=== PATIENT | male | born 1930 | race Hispanic/Latino ===

== ENCOUNTER 2017-05-16 12:41 | Inpatient (IN) | payer MEDICARE ==
[2017-05-16 12:41] VITALS: BMI 31.4
[2017-05-16] MEDS ORDERED: Albuterol-Ipratrop 3 mg / 0.5 (3 ml) UD IH STA (15:01)
[2017-05-16] MEDS ORDERED: Albuterol-Ipratrop 3 mg / 0.5 (3 ml) UD ONE (15:10)
[2017-05-16 15:33] LABS: BASO % 0.2 % (0.0-2.0); HEMOGLOBIN 12.9 g/dL (12.0-18.0); LYMPH # 0.9 K/uL (1.0-4.3); LYMPH % 6.6 % (20.0-40.0); MEAN CELL VOLUME 95.6 fL (80.0-94.0); MEAN CORPUSCULAR HEMOGLOBIN 31.7 pg (27.0-31.0); MEAN CORPUSCULAR HGB CONC 33.1 g/dL (33.0-37.0); MEAN PLATELET VOLUME 9.5 fL (7.2-11.7); MONO # 1.6 K/uL (0.0-0.8); MONO % 11.2 % (0.0-10.0); NEUT # 11.5 K/uL (1.8-7.0); PLATELET COUNT 133 K/uL (130-400); RBC 4.08 Mil/uL (4.40-5.90); RED CELL DISTRIBUTION WIDTH 13.6 % (11.5-14.5)
[2017-05-16 15:35] LABS: WHITE BLOOD COUNT 14.1 K/uL (4.8-10.8)
[2017-05-16 15:39] LABS: SQUAMOUS EPITHIAL 1 /hpf (0-5); URINE BACTERIA OCC (<OCC); URINE BILIRUBIN NEGATIVE (NEGATIVE); URINE BLOOD 1+ (NEGATIVE); URINE CLARITY Hazy (Clear); URINE COLOR Amber (YELLOW); URINE GLUCOSE (UA) NORMAL (Normal); URINE LEUKOCYTE ESTERASE 3+ Leu/uL (Negative); URINE NITRATE POSITIVE (NEGATIVE); URINE PROTEIN 3+ mg/dL (NEGATIVE); URINE UROBILINOGEN NORMAL mg/dL (0.2-1.0)
[2017-05-16 15:42] LABS: INR 1.4; PROTHROMBIN TIME 15.6 SECONDS (9.7-12.2)
[2017-05-16 15:46] LABS: ALB/GLOB RATIO 1.1 (1.0-2.1); ALBUMIN 4.3 g/dL (3.5-5.0); ALT/SGPT 39 U/L (21-72); AST/SGOT 35 U/L (17-59); BLOOD UREA NITROGEN 29 mg/dL (9-20); CALCIUM 8.7 mg/dl (8.6-10.4); GFR AFRICAN-AMERICAN > 60; GFR NON-AFRICAN AMERICAN 52
[2017-05-16 15:56] LABS: BANDS 2 % (0-2); BURR CELLS SLIGHT; LYMPHOCYTE 5 % (20-40); MONOCYTE 9 % (0-10); NEUTROPHIL 84 % (50-75); PLATELET ESTIMATE NORMAL (NORMAL); TOTAL CELLS COUNTED 100
[2017-05-16 15:57] LABS: GIANT PLATELETS PRESENT; LARGE PLATELETS PRESENT
[2017-05-16 15:58] LABS: B-TYPE NATRIURETIC PEPTIDE 1530 pg/mL (0-900)
--- NOTE | 2017-05-16 17:30 | RAD ---
HISTORY: Cough COMPARISON: Chest x-ray performed 02/06/14 TECHNIQUE: Chest PA and lateral FINDINGS: LUNGS: No focal consolidation. Please note that chest x-ray has limited sensitivity for the detection of pulmonary masses. PLEURA: No significant pleural effusion identified. No definite pneumothorax . CARDIOVASCULAR: Heart size appears within normal limits. Atherosclerotic calcification of the aorta. OSSEOUS STRUCTURES: Osseous demineralization. Degenerative changes. VISUALIZED UPPER ABDOMEN: Marked elevation of the right hemidiaphragm. OTHER FINDINGS: None. IMPRESSION: Marked elevation of the right hemidiaphragm.
--- NOTE | 2017-05-16 18:06 | C.PDOC ---
Time Seen by Provider: 05/16/17 14:49 Chief Complaint (Nursing): Fever History Per: Patient Onset/Duration Of Symptoms: Days (few) Current Symptoms Are (Timing): Still Present Associated Symptoms: Fever (subjective), Cough, Nasal Congestion, Other ( Urinary symptoms) Severity: Moderate Additional History Per: Prior Records Past Medical History Reviewed: Historical Data, Nursing Documentation, Vital Signs Vital Signs: Last Vital Signs Temp 98.7 F 05/16/17 18:01 Pulse 92 H 05/16/17 18:01 Resp 18 05/16/17 18:01 BP 131/80 05/16/17 18:01 Pulse Ox 96 05/16/17 18:07 - Medical History PMH: Atrial Fibrillation, Benign Prostatic Hyperplasia (?), HTN Surgical History: Coronary Stent (x5) Family History: States: Unknown Family Hx - Social History Hx Tobacco Use: No Hx Alcohol Use: Yes Hx Substance Use: No - Immunization History Hx Tetanus Toxoid Vaccination: No Hx Influenza Vaccination: No Hx Pneumococcal Vaccination: No Review Of Systems Except As Marked, All Systems Reviewed And Found Negative. Constitutional: Positive for: Malaise Cardiovascular: Negative for: Chest Pain Respiratory: Positive for: Cough. Negative for: Shortness of Breath, Hemoptysis Gastrointestinal: Negative for: Vomiting, Abdominal Pain, Diarrhea Genitourinary: Positive for: Dysuria, Frequency Musculoskeletal: Negative for: Neck Pain, Back Pain Skin: Negative for: Rash Neurological: Negative for: Weakness, Numbness Physical Exam - Physical Exam Appears: Non-toxic, No Acute Distress Skin: Normal Color, Warm, Dry, No Rash Head: Atraumatic, Normacephalic Eye(s): bilateral: Normal Inspection, PERRL, EOMI Neck: Normal ROM, Supple Cardiovascular: Rhythm Regular Respiratory: No Accessory Muscle Use, Rhonchi (mild) Gastrointestinal/Abdominal: Soft, No Tenderness Back: No CVA Tenderness Extremity: Normal ROM Neurological/Psych: Oriented x3, Normal Motor, Normal Sensation ED Course And Treatment - Laboratory Results Result Diagrams: 05/16/17 15:29 05/16/17 15:29 Lab Interpretation: Abnormal Interpretation Of Abnormal: UTI. Mild leukocytosis. O2 Sat by Pulse Oximetry: 96 Pulse Ox Interpretation: Normal - Radiology CXR: Viewed By Me, Read By Radiologist CXR Interpretation: Yes: Other (Elevated right hemidiaphragm). No: Infiltrates Progress - Interventions Interventions:: Observation, Intravenous fluid - Medications Administered Inhaled nebulized: Anticholinergic, Beta-2 agonist Intravenous: Other (Abx) - Data Reviewed Data Reviewed: Lab, Diagnostic imaging, Old records - Patient Status Patient status: Partially improved - Continuity of Care Discussed patient case with:: Patient, ED Nurse, On-call PMD-pt unassigned - Patient Plan Patient Plan: Admission Disposition Discussed With : Anand Alba Comment: He accepted pt on his service. Doctor Will See Patient In The: Hospital Counseled Patient/Family Regarding: Studies Performed, Diagnosis - Disposition Disposition: HOSPITALIZED Disposition Time: 18:08 Condition: FAIR - Clinical Impression Clinical Impression: Complicated urinary tract infection
[2017-05-16] MEDS ORDERED: cefTRIAXone IV 1 gm in Dextros 50 ML IVPB STA (18:07)
[2017-05-16] MEDS ORDERED: Sodium Chloride 0.9% 500 ML IV ONE ×2 (18:07→18:14)
[2017-05-16] MEDS ORDERED: cefTRIAXone IV 1 gm in Dextros 50 ML IVPB ONE (18:14)
--- NOTE | 2017-05-16 22:53 | CP.PCM.HP ---
History of Present Illness - History of Present Illness History of Present Illness: CC: coughing, fever HPI: 86 year old white male with PMh of prostrate cancer, came in with c/o coughing, associated with fever and chills pt assumed that he had pneumonia and came in ER to get evaluated, he was found to have UTI Review of Systems - Review of Systems Systems not reviewed;Unavailable: Acuity of Condition - Constitutional Constitutional: Fatigue, Fever, Lethargy - EENT Eyes: absent: As Per HPI, Blind Spots, Blurred Vision, Change in Vision, Decreased Night Vision, Diplopia, Discharge, Dry Eye, Exophthalmos, Floaters, Irritation, Itchy Eyes, Loss of Peripheral Vision, Pain, Photophobia, Requires Corrective Lenses, Sees Flashes, Spots in Vision, Tunnel Vision, Other Visual Disturbances, Loss of Vision, Other Nose/Mouth/Throat: absent: As Per HPI, Epistaxis, Nasal Congestion, Nasal Discharge, Nasal Obstruction, Nasal Trauma, Nose Pain, Post Nasal Drip, Sinus Pain, Sinus Pressure, Bleeding Gums, Change in Voice, Dental Pain, Dry Mouth, Dysphagia, Halitosis, Hoarsness, Lip Swelling, Mouth Lesions, Mouth Pain, Odynophagia, Sore Throat, Throat Swelling, Tongue Swelling, Facial Pain, Neck Pain, Neck Mass, Other - Respiratory Respiratory: Cough - Gastrointestinal Gastrointestinal: absent: As Per HPI, Abdominal Pain, Belching, Bloating, Change in Bowel Habits, Change in Stool Character, Coffee Ground Emesis, Constipation, Cramping, Diarrhea, Dyspepsia, Dysphagia, Early Satiety, Excessive Flatus, Fecal Incontinence, Heartburn, Hematemesis, Hematochezia, Loose Stools, Melena, Nausea, Odynophagia, Temesmus, Vomiting, Other - Genitourinary Genitourinary: Urinary Frequency, Urinary Hesitance Past Patient History - Past Medical History & Family History Past Medical History?: Yes - Past Social History Smoking Status: Never Smoked - CARDIAC Hx Atrial Fibrillation: Yes Hx Hypertension: Yes - PULMONARY Hx Respiratory Disorders: No - NEUROLOGICAL Hx Neurological Disorder: No - HEENT Hx HEENT Problems: No - ENDOCRINE/METABOLIC Hx Endocrine Disorders: No - HEMATOLOGICAL/ONCOLOGICAL Hx Blood Disorders: No - INTEGUMENTARY Hx Dermatological Problems: No - MUSCULOSKELETAL/RHEUMATOLOGICAL Hx Musculoskeletal Disorders: No Hx Falls: No - GASTROINTESTINAL Hx Gastrointestinal Disorders: No - GENITOURINARY/GYNECOLOGICAL Hx Genitourinary Disorders: Yes Hx Prostate Cancer: Yes - PSYCHIATRIC Hx Substance Use: No - SURGICAL HISTORY Hx Coronary Stent: Yes (x5) - ANESTHESIA Hx Anesthesia: Yes Hx Anesthesia Reactions: No Hx Malignant Hyperthermia: No Meds Allergies/Adverse Reactions: Allergies Allergy/AdvReac Type Severity Reaction Status Date / Time No Known Allergies Allergy Verified 05/16/17 13:05 Physical Exam - Constitutional Appears: No Acute Distress - Head Exam Head Exam: ATRAUMATIC, NORMAL INSPECTION, NORMOCEPHALIC - Eye Exam Eye Exam: EOMI, Normal appearance, PERRL Pupil Exam: NORMAL ACCOMODATION, PERRL - Respiratory Exam Respiratory Exam: Clear to Auscultation Bilateral, NORMAL BREATHING PATTERN - Cardiovascular Exam Cardiovascular Exam: REGULAR RHYTHM - GI/Abdominal Exam GI & Abdominal Exam: Normal Bowel Sounds, Soft. absent: Tenderness Results - Vital Signs Recent Vital Signs: Last Vital Signs Temp 98.7 F 05/16/17 22:33 Pulse 101 H 05/16/17 22:33 Resp 18 05/16/17 22:33 BP 134/61 05/16/17 22:33 Pulse Ox 96 05/16/17 22:33 - Labs Result Diagrams: 05/16/17 15:29 05/16/17 15:29 Labs: Laboratory Results - last 24 hr 05/16/17 05/16/17 05/16/17 15:29 15:29 15:29 WBC 14.1 H D RBC 4.08 L Hgb 12.9 Hct 39.0 MCV 95.6 H MCH 31.7 H MCHC 33.1 RDW 13.6 Plt Count 133 MPV 9.5 Neut % (Auto) 82.0 H Lymph % (Auto) 6.6 L [place] % (Auto) 11.2 H Eos % (Auto) 0.0 Baso % (Auto) 0.2 Neut # (Auto) 11.5 H Lymph # (Auto) 0.9 L [place] # (Auto) 1.6 H Eos # (Auto) 0.0 Baso # (Auto) 0.0 Neutrophils % (Manual) 84 H Band Neutrophils % 2 Lymphocytes % (Manual) 5 L Monocytes % (Manual) 9 Platelet Estimate Normal Large Platelets Present Giant Platelets Present [place] Cells Slight PT 15.6 H INR 1.4 APTT 48 H Sodium 131 L Potassium 4.5 Chloride 93 L Carbon Dioxide 26 Anion Gap 17 BUN 29 H Creatinine 1.3 Est GFR ( Amer) > 60 Est GFR (Non-Af Amer) 52 Random Glucose 100 Calcium 8.7 Total Bilirubin 0.9 AST 35 ALT 39 Alkaline Phosphatase 98 Troponin I 0.0750 NT-Pro-B Natriuret Pep 1530 H Total Protein 8.3 Albumin 4.3 Globulin 4.0 H Albumin/Globulin Ratio 1.1 Urine Color Urine Clarity Urine pH Ur Specific [place] Urine Protein Urine Glucose (UA) Urine Ketones Urine Blood Urine Nitrate Urine Bilirubin Urine Urobilinogen Ur Leukocyte Esterase Urine WBC (Auto) Urine RBC (Auto) Ur Squamous Epith Cells Urine Bacteria Influenza Typ A,B (EIA) 05/16/17 05/16/17 15:29 15:31 WBC RBC Hgb Hct MCV MCH MCHC RDW Plt Count MPV Neut % (Auto) Lymph % (Auto) [place] % (Auto) Eos % (Auto) Baso % (Auto) Neut # (Auto) Lymph # (Auto) [place] # (Auto) Eos # (Auto) Baso # (Auto) Neutrophils % (Manual) Band Neutrophils % Lymphocytes % (Manual) Monocytes % (Manual) Platelet Estimate Large Platelets Giant Platelets [place] Cells PT INR APTT Sodium Potassium Chloride Carbon Dioxide Anion Gap BUN Creatinine Est GFR ( Amer) Est GFR (Non-Af Amer) Random Glucose Calcium Total Bilirubin AST ALT Alkaline Phosphatase Troponin I NT-Pro-B Natriuret Pep Total Protein Albumin Globulin Albumin/Globulin Ratio Urine Color [place] Urine Clarity Hazy Urine pH 5.0 Ur Specific [place] 1.019 Urine Protein 3+ H Urine Glucose (UA) Normal Urine Ketones Trace Urine Blood 1+ H Urine Nitrate Positive H Urine Bilirubin Negative Urine Urobilinogen Normal Ur Leukocyte Esterase 3+ H Urine WBC (Auto) 865 H Urine RBC (Auto) 6 H Ur Squamous Epith Cells 1 Urine Bacteria Occ H Influenza Typ A,B (EIA) Negative for flu a/b Assessment & Plan (1) Shortness of breath Status: Acute (2) Cough Status: Acute (3) Complicated urinary tract infection Status: Acute
[2017-05-17] MEDS: guaiFENesin 200 mg/10 ml Syrup UD PO PRN (00:48)
[2017-05-17] MEDS: Albuterol-Ipratrop 3 mg / 0.5 (3 ml) UD INH SCH ×4 (01:20→20:39)
[2017-05-17 01:32] VITALS: RESP 20
[2017-05-17] MEDS: Magnesium Oxide 400 mg Tab UD PO SCH (10:01)
[2017-05-17 11:39] LABS: BASO % 0.2 % (0.0-2.0); EOS % 0.1 % (0.0-4.0); HEMOGLOBIN 11.9 g/dL (12.0-18.0); LYMPH # 0.9 K/uL (1.0-4.3); LYMPH % 7.7 % (20.0-40.0); MEAN CELL VOLUME 95.6 fL (80.0-94.0); MEAN CORPUSCULAR HEMOGLOBIN 31.9 pg (27.0-31.0); MEAN CORPUSCULAR HGB CONC 33.4 g/dL (33.0-37.0); MEAN PLATELET VOLUME 10.3 fL (7.2-11.7); MONO # 0.8 K/uL (0.0-0.8); MONO % 6.9 % (0.0-10.0); NEUT % 85.1 % (50.0-75.0); NRBC % 0.1 % (0.0-2.0); RBC 3.73 Mil/uL (4.40-5.90); RED CELL DISTRIBUTION WIDTH 13.3 % (11.5-14.5); WHITE BLOOD COUNT 11.7 K/uL (4.8-10.8)
[2017-05-17 11:40] LABS: BLOOD UREA NITROGEN 29 mg/dL (9-20); CALCIUM 8.2 mg/dl (8.6-10.4); GFR AFRICAN-AMERICAN > 60; GFR NON-AFRICAN AMERICAN > 60
[2017-05-17 11:46] LABS: PLATELET COUNT 111 K/uL (130-400)
--- NOTE | 2017-05-17 11:54 | CARD ---
APPROVED REPORT EKG Measurement Heart [id number] <Conclusion> Atrial fibrillation Right bundle branch block Marked T wave abnormality, consider inferolateral ischemia Abnormal ECG
[2017-05-17 12:40] LABS: BANDS 2 % (0-2); LYMPHOCYTE 6 % (20-40); MONOCYTE 5 % (0-10); NEUTROPHIL 87 % (50-75); TOTAL CELLS COUNTED 100
[2017-05-17 12:42] LABS: PLATELET ESTIMATE SLIGHTLY DECREASED (NORMAL)
[2017-05-17 12:43] LABS: OVALOCYTES SLIGHT
[2017-05-17 12:45] LABS: BURR CELLS SLIGHT
--- NOTE | 2017-05-17 23:09 | CP.PCM.PN ---
Subjective - Date & Time of Evaluation Date of Evaluation: 05/17/17 Time of Evaluation: 19:55 - Subjective Subjective: Pt seen and evaluated at bedside, still febrile Objective - Vital Signs/Intake and Output Vital Signs (last 24 hours): Temp Pulse Resp BP Pulse Ox 101 F H 76 20 105/65 96 05/17/17 18:44 05/17/17 15:24 05/17/17 15:24 05/17/17 18:43 05/17/17 15:24 - Medications Medications: Current Medications Acetaminophen (Tylenol 325mg Tab) 650 mg PO Q6 PRN PRN Reason: pain/fever of 100.4 and above Last Admin: 05/17/17 18:44 Dose: 650 mg Albuterol/Ipratropium (Duoneb 3 Mg/0.5 Mg (3 Ml) Ud) 3 ml INH RQ6 [facility] Last Admin: 05/17/17 20:39 Dose: 3 ml Clopidogrel Bisulfate (Plavix) 75 mg PO DAILY [facility] Last Admin: 05/17/17 10:00 Dose: 75 mg Dabigatran (Pradaxa) 150 mg PO BID [facility] Last Admin: 05/17/17 18:44 Dose: 150 mg Enalapril Maleate (Vasotec) 2.5 mg PO DAILY [facility] Last Admin: 05/17/17 10:00 Dose: 2.5 mg Guaifenesin (Robitussin) 200 mg PO Q4H PRN PRN Reason: Cough and congestion Last Admin: 05/17/17 00:48 Dose: 200 mg Ceftriaxone Sodium 1 gm/ (Sodium Chloride) 100 mls @ 100 mls/hr IVPB DAILY [facility] Last Admin: 05/17/17 10:01 Dose: 100 mls/hr Magnesium Oxide (Mag-Ox) 400 mg PO DAILY [facility] Last Admin: 05/17/17 10:01 Dose: 400 mg Metoprolol Tartrate (Lopressor) 25 mg PO BID [facility] Last Admin: 05/17/17 18:43 Dose: 25 mg Pneumococcal Polyvalent Vaccine (Pneumovax 23 Vaccine) 0.5 ml IM .ONCE ONE Stop: 05/18/17 14:01 Rosuvastatin Calcium (Crestor) 10 mg PO HS [facility] Last Admin: 05/17/17 21:34 Dose: 10 mg - Labs Labs: 05/17/17 11:15 05/17/17 11:15 PT 15.6 SECONDS (9.7-12.2) H 05/16/17 15:29 INR 1.4 05/16/17 15:29 APTT 48 SECONDS (21-34) H 05/16/17 15:29 - Constitutional Appears: No Acute Distress - Head Exam Head Exam: ATRAUMATIC, NORMAL INSPECTION, NORMOCEPHALIC - Eye Exam Eye Exam: EOMI, Normal appearance, PERRL Pupil Exam: NORMAL ACCOMODATION, PERRL - Respiratory Exam Respiratory Exam: Decreased Breath Sounds, Rales, Rhonchi - Cardiovascular Exam Cardiovascular Exam: REGULAR RHYTHM, +S1, +S2. absent: Murmur - GI/Abdominal Exam GI & Abdominal Exam: Soft, Normal Bowel Sounds. absent: Tenderness Assessment and Plan (1) Shortness of breath Status: Acute (2) Cough Status: Acute (3) Complicated urinary tract infection Assessment & Plan: r/o pyelonephrits on antibiotics pending urine culture Status: Acute
[2017-05-18] MEDS: Albuterol-Ipratrop 3 mg / 0.5 (3 ml) UD INH SCH ×4 (01:16→19:59)
[2017-05-18] MEDS: Magnesium Oxide 400 mg Tab UD PO SCH (10:04)
[2017-05-18 11:22] LABS: BASO % 0.2 % (0.0-2.0); EOS % 0.2 % (0.0-4.0); LYMPH # 1.2 K/uL (1.0-4.3); LYMPH % 13.8 % (20.0-40.0); MEAN CELL VOLUME 94.8 fL (80.0-94.0); MEAN CORPUSCULAR HEMOGLOBIN 32.4 pg (27.0-31.0); MEAN CORPUSCULAR HGB CONC 34.1 g/dL (33.0-37.0); MEAN PLATELET VOLUME 10.4 fL (7.2-11.7); MONO # 0.8 K/uL (0.0-0.8); MONO % 9.2 % (0.0-10.0); NEUT # 6.7 K/uL (1.8-7.0); NEUT % 76.6 % (50.0-75.0); RBC 3.4 Mil/uL (4.40-5.90); RED CELL DISTRIBUTION WIDTH 13.4 % (11.5-14.5); WHITE BLOOD COUNT 8.7 K/uL (4.8-10.8)
[2017-05-18 11:50] LABS: BLOOD UREA NITROGEN 31 mg/dL (9-20); CALCIUM 7.9 mg/dl (8.6-10.4); GFR AFRICAN-AMERICAN > 60; GFR NON-AFRICAN AMERICAN > 60
[2017-05-18 11:57] VITALS: O2SAT 97
[2017-05-18] MEDS ORDERED: Influenza Vaccine 60 mcg/0.5 mL SYR (4YR UP) IM ONE (14:00)
[2017-05-18] MEDS ORDERED: Pneumococcal 23-Valent Vaccine IM ONE (14:00)
[2017-05-18] MEDS: Ciprofloxacin 400mg/200ml D5W 400 MG/200 ML BAG IVPB SCH (14:47)
[2017-05-18 22:53] LABS: SQUAMOUS EPITHIAL 2 /hpf (0-5); URINE BILIRUBIN NEGATIVE (NEGATIVE); URINE BLOOD NEGATIVE (NEGATIVE); URINE CLARITY Hazy (Clear); URINE COLOR Yellow (YELLOW); URINE GLUCOSE (UA) NORMAL (Normal); URINE NITRATE NEGATIVE (NEGATIVE); URINE PROTEIN 1+ mg/dL (NEGATIVE); URINE UROBILINOGEN NORMAL mg/dL (0.2-1.0)
[2017-05-18 22:54] LABS: URINE LEUKOCYTE ESTERASE 1+ Leu/uL (Negative)
--- NOTE | 2017-05-18 23:45 | CP.PCM.PN ---
Subjective - Date & Time of Evaluation Date of Evaluation: 05/18/17 Time of Evaluation: 18:00 - Subjective Subjective: Pt seen and evalauted is afebrile, his urine culture positive for E.coli which is nieves sensitive Objective - Vital Signs/Intake and Output Vital Signs (last 24 hours): Temp Pulse Resp BP Pulse Ox 98.1 F 70 20 116/65 97 05/18/17 15:22 05/18/17 15:22 05/18/17 15:22 05/18/17 18:26 05/18/17 15:22 Intake and Output: 05/18/17 05/19/17 18:59 06:59 Intake Total 600 Balance 600 - Medications Medications: Current Medications Acetaminophen (Tylenol 325mg Tab) 650 mg PO Q6 PRN PRN Reason: pain/fever of 100.4 and above Last Admin: 05/17/17 18:44 Dose: 650 mg Albuterol/Ipratropium (Duoneb 3 Mg/0.5 Mg (3 Ml) Ud) 3 ml INH RQ6 [facility] Last Admin: 05/18/17 19:59 Dose: Not Given Clopidogrel Bisulfate (Plavix) 75 mg PO DAILY [facility] Last Admin: 05/18/17 10:03 Dose: 75 mg Dabigatran (Pradaxa) 150 mg PO BID [facility] Last Admin: 05/18/17 18:26 Dose: 150 mg Enalapril Maleate (Vasotec) 2.5 mg PO DAILY [facility] Last Admin: 05/18/17 10:03 Dose: 2.5 mg Guaifenesin (Robitussin) 200 mg PO Q4H PRN PRN Reason: Cough and congestion Last Admin: 05/17/17 00:48 Dose: 200 mg Ciprofloxacin (Cipro 400mg/200ml Dsw) 400 mg in 200 mls @ 133 mls/hr IVPB Q12H [facility] Last Admin: 05/18/17 14:47 Dose: 133 mls/hr Magnesium Oxide (Mag-Ox) 400 mg PO DAILY [facility] Last Admin: 05/18/17 10:04 Dose: 400 mg Metoprolol Tartrate (Lopressor) 25 mg PO BID [facility] Last Admin: 05/18/17 18:26 Dose: 25 mg Rosuvastatin Calcium (Crestor) 10 mg PO HS [facility] Last Admin: 05/18/17 21:38 Dose: 10 mg - Labs Labs: 02/07/18 11:00 05/18/17 11:00 PT 15.6 SECONDS (9.7-12.2) H 05/16/17 15:29 INR 1.4 05/16/17 15:29 APTT 48 SECONDS (21-34) H 05/16/17 15:29 - Constitutional Appears: No Acute Distress - Head Exam Head Exam: ATRAUMATIC, NORMAL INSPECTION, NORMOCEPHALIC - Eye Exam Eye Exam: EOMI, Normal appearance, PERRL Pupil Exam: NORMAL ACCOMODATION, PERRL - Respiratory Exam Respiratory Exam: Clear to Ausculation Bilateral, NORMAL BREATHING PATTERN - Cardiovascular Exam Cardiovascular Exam: REGULAR RHYTHM, +S1, +S2. absent: Murmur - GI/Abdominal Exam GI & Abdominal Exam: Soft, Normal Bowel Sounds. absent: Tenderness Assessment and Plan (1) Shortness of breath Status: Acute (2) Cough Status: Acute (3) Complicated urinary tract infection Assessment & Plan: on antibiotics medical management Status: Acute
[2017-05-19] MEDS: Albuterol-Ipratrop 3 mg / 0.5 (3 ml) UD INH SCH ×3 (01:16→13:42)
[2017-05-19] MEDS: Ciprofloxacin 400mg/200ml D5W 400 MG/200 ML BAG IVPB SCH ×2 (02:13→14:15)
[2017-05-19] MEDS: guaiFENesin 200 mg/10 ml Syrup UD PO PRN ×2 (02:21→09:40)
[2017-05-19 07:53] VITALS: PULSE 77; TEMP 98
[2017-05-19] MEDS: Magnesium Oxide 400 mg Tab UD PO SCH (09:26)
[2017-05-19 09:32] VITALS: BP 124/65
[2017-05-19 11:58] LABS: BASO % 0.1 % (0.0-2.0); EOS % 0.2 % (0.0-4.0); HEMOGLOBIN 11.4 g/dL (12.0-18.0); LYMPH # 1.2 K/uL (1.0-4.3); LYMPH % 14.1 % (20.0-40.0); MEAN CELL VOLUME 94.3 fL (80.0-94.0); MEAN CORPUSCULAR HEMOGLOBIN 32.6 pg (27.0-31.0); MEAN CORPUSCULAR HGB CONC 34.6 g/dL (33.0-37.0); MEAN PLATELET VOLUME 10.2 fL (7.2-11.7); MONO # 0.6 K/uL (0.0-0.8); MONO % 7.1 % (0.0-10.0); NEUT # 6.5 K/uL (1.8-7.0); NEUT % 78.5 % (50.0-75.0); RBC 3.51 Mil/uL (4.40-5.90); RED CELL DISTRIBUTION WIDTH 13.5 % (11.5-14.5); WHITE BLOOD COUNT 8.2 K/uL (4.8-10.8)
[2017-05-19 12:13] LABS: BLOOD UREA NITROGEN 24 mg/dL (9-20); CALCIUM 7.9 mg/dl (8.6-10.4); GFR AFRICAN-AMERICAN > 60; GFR NON-AFRICAN AMERICAN > 60
--- NOTE | 2017-05-19 23:27 | CP.PCM.DIS ---
Provider - Provider Date of Admission: 05/16/17 18:48 Attending physician: Anand Alba MD Time Spent in preparation of Discharge (in minutes): 56 Diagnosis - Discharge Diagnosis (1) Shortness of breath Status: Acute (2) Cough Status: Acute (3) Complicated urinary tract infection Status: Acute Hospital Course - Lab Results Lab Results: Micro Results 05/16/17 15:25 Blood Blood Culture - Preliminary NO GROWTH AFTER 3 DAYS 05/16/17 15:00 Blood Blood Culture - Preliminary NO GROWTH AFTER 3 DAYS 05/16/17 15:01 Urine Urine Culture - Final Escherichia Coli Most Recent Lab Values WBC 8.2 K/uL (4.8-10.8) 05/19/17 11:30 RBC 3.51 Mil/uL (4.40-5.90) L 05/19/17 11:30 Hgb 11.4 g/dL (12.0-18.0) L 05/19/17 11:30 Hct 33.1 % (35.0-51.0) L 05/19/17 11:30 MCV 94.3 fL (80.0-94.0) H 05/19/17 11:30 MCH 32.6 pg (27.0-31.0) H 05/19/17 11:30 MCHC 34.6 g/dL (33.0-37.0) 05/19/17 11:30 RDW 13.5 % (11.5-14.5) 05/19/17 11:30 Plt Count 121 K/uL (130-400) L 05/19/17 11:30 MPV 10.2 fL (7.2-11.7) 05/19/17 11:30 Neut % (Auto) 78.5 % (50.0-75.0) H 05/19/17 11:30 Lymph % (Auto) 14.1 % (20.0-40.0) L 05/19/17 11:30 [place] % (Auto) 7.1 % (0.0-10.0) 05/19/17 11:30 Eos % (Auto) 0.2 % (0.0-4.0) 05/19/17 11:30 Baso % (Auto) 0.1 % (0.0-2.0) 05/19/17 11:30 Neut # (Auto) 6.5 K/uL (1.8-7.0) 05/19/17 11:30 Lymph # (Auto) 1.2 K/uL (1.0-4.3) 05/19/17 11:30 [place] # (Auto) 0.6 K/uL (0.0-0.8) 05/19/17 11:30 Eos # (Auto) 0.0 K/uL (0.0-0.7) 05/19/17 11:30 Baso # (Auto) 0.0 K/uL (0.0-0.2) 05/19/17 11:30 Neutrophils % (Manual) 87 % (50-75) H 05/17/17 11:15 Band Neutrophils % 2 % (0-2) 05/17/17 11:15 Lymphocytes % (Manual) 6 % (20-40) L 05/17/17 11:15 Monocytes % (Manual) 5 % (0-10) 05/17/17 11:15 Platelet Estimate Slightly decreased (NORMAL) L 05/17/17 11:15 Large Platelets Present 05/16/17 15:29 Giant Platelets Present 05/16/17 15:29 Ovalocytes Slight 05/17/17 11:15 Sj Cells Slight 05/17/17 11:15 PT 15.6 SECONDS (9.7-12.2) H 05/16/17 15:29 INR 1.4 05/16/17 15:29 APTT 48 SECONDS (21-34) H 05/16/17 15:29 Sodium 135 mmol/L (132-148) 05/19/17 11:30 Potassium 4.1 mmol/L (3.6-5.2) 05/19/17 11:30 Chloride 100 mmol/L (98-107) 05/19/17 11:30 Carbon Dioxide 26 mmol/L (22-30) 05/19/17 11:30 Anion Gap 12 (10-20) 05/19/17 11:30 BUN 24 mg/dL (9-20) H 05/19/17 11:30 Creatinine 0.9 mg/dL (0.8-1.5) 05/19/17 11:30 Est GFR ( Amer) > 60 05/19/17 11:30 Est GFR (Non-Af Amer) > 60 05/19/17 11:30 Random Glucose 137 mg/dL (75-110) H 05/19/17 11:30 Calcium 7.9 mg/dl (8.6-10.4) L 05/19/17 11:30 Total Bilirubin 0.9 mg/dL (0.2-1.3) 05/16/17 15:29 AST 35 U/L (17-59) 05/16/17 15:29 ALT 39 U/L (21-72) 05/16/17 15:29 Alkaline Phosphatase 98 U/L (38-126) 05/16/17 15:29 Troponin I 0.0750 ng/mL (0.00-0.120) 05/16/17 15:29 NT-Pro-B Natriuret Pep 1530 pg/mL (0-900) H 05/16/17 15:29 Total Protein 8.3 g/dL (6.3-8.3) 05/16/17 15:29 Albumin 4.3 g/dL (3.5-5.0) 05/16/17 15:29 Globulin 4.0 gm/dL (2.2-3.9) H 05/16/17 15:29 Albumin/Globulin Ratio 1.1 (1.0-2.1) 05/16/17 15:29 Urine Color Yellow (YELLOW) 05/18/17 22:47 Urine Clarity Hazy (Clear) 05/18/17 22:47 Urine pH 5.0 (5.0-8.0) 05/18/17 22:47 Ur Specific [place] 1.016 (1.003-1.030) 05/18/17 22:47 Urine Protein 1+ mg/dL (NEGATIVE) H 05/18/17 22:47 Urine Glucose (UA) Normal mg/dL (Normal) 05/18/17 22:47 Urine Ketones Negative mg/dL (NEGATIVE) 05/18/17 22:47 Urine Blood Negative (NEGATIVE) 05/18/17 22:47 Urine Nitrate Negative (NEGATIVE) 05/18/17 22:47 Urine Bilirubin Negative (NEGATIVE) 05/18/17 22:47 Urine Urobilinogen Normal mg/dL (0.2-1.0) 05/18/17 22:47 Ur Leukocyte Esterase 1+ Alexi/uL (Negative) H 05/18/17 22:47 Urine WBC (Auto) 8 /hpf (0-5) H 05/18/17 22:47 Urine RBC (Auto) 1 /hpf (0-3) 05/18/17 22:47 Ur Squamous Epith Cells 2 /hpf (0-5) 05/18/17 22:47 Urine Bacteria Occ (<OCC) H 05/16/17 15:29 Influenza Typ A,B (EIA) Negative for flu a/b (NEGATIVE) 05/16/17 15:31 - Hospital Course Hospital Course: Pt is for discharge today, feeling better, afebrile, urine is clearing up cough is resolved. Discharge Exam - Head Exam Head Exam: ATRAUMATIC, NORMAL INSPECTION, NORMOCEPHALIC - Eye Exam Eye Exam: Normal appearance - ENT Exam ENT Exam: Mucous Membranes Moist - Respiratory Exam Respiratory Exam: Clear to PA & Lateral, NORMAL BREATHING PATTERN - Cardiovascular Exam Cardiovascular Exam: REGULAR RHYTHM, +S1, +S2 - GI/Abdominal Exam GI & Abdominal Exam: Normal Bowel Sounds Discharge Plan - Discharge Medications Prescriptions: Ciprofloxacin [Cipro] 500 mg PO BID #10 tab guaiFENesin [Mucinex LA] 600 mg PO BID #30 tab - Follow Up Plan Condition: FAIR Disposition: HOME/ ROUTINE Instructions: Ciprofloxacin (By mouth), Guaifenesin (By mouth), Urinary Tract Infection in Men (DC), Chronic Cough (DC) Additional Instructions: -FOLLOW UP WITH YOUR PRIMARY DOCTOR OR WITH DR. ALBA IN THE OFFICE WITHIN 5- 7 DAYS----CALL FOR APPT TIME. -CONTINUE TAKING YOUR HOME MEDICATIONS USUAL. -NEW PRESCRIPTIONS PER DR. ALBA INCLUDE: 1) CIPRO (ANTIBIOTIC) TAKE 1 TABLET TWICE A DAY (MORNING AND EVENING) FOR 5 DAYS. TAKE WITH FOOD. 2) COUGH MEDICINE---TAKE TWICE A DAY (MORNING AND EVENING). -FOR FURTHER QUESTIONS OR CONCERNS, CONTACT DR. ALBA'S OFFICE. Referrals: Anand Alba MD [Staff Provider] -
== END 2017-05-19 15:15 | disposition home or self-care (01) | DRG 690 ==
LOC: C.ER 12:41 → C.9E 18:48 → C.6T 21:32
PROVIDERS: ADMIT Internal Medicine; ATTEND Internal Medicine
DX: N39.0 Urinary tract infection, site not specified (principal); I48.91 Unspecified atrial fibrillation; I10 Essential (primary) hypertension; Z85.46 Personal history of malignant neoplasm of prostate; Z95.5 Presence of coronary angioplasty implant and graft; I25.10 Atherosclerotic heart disease of native coronary artery without angina pectoris

== ENCOUNTER 2018-05-15 11:43 | Outpatient (CLI) | payer MEDICARE | END 2018-05-15 11:44 | disposition home or self-care (01) | LOC: C.VASC 11:43 | DX: M79.606 Pain in leg, unspecified (principal); I87.2 Venous insufficiency (chronic) (peripheral); I79.8 Other disorders of arteries, arterioles and capillaries in diseases classified elsewhere; I65.29 Occlusion and stenosis of unspecified carotid artery ==